=== PATIENT | male | born 1990 | race Caucasian/White ===

== ENCOUNTER 2018-04-20 18:45 | Emergency (ER) | payer MEDICAID ==
[~2018-04-20] VITALS: Ht 170.2 cm; Wt 74.8 kg
[2018-04-20 18:57] VITALS: BP 107/69
--- NOTE | 2018-04-20 19:03 | NUR ---
27 Y/O M PRESENTS TO THE ED W/C/O GEN BODY RASH/ITCHINESS X 3 MONTHS WHILE IN [facility]; WAS JUST RELEASE FROM [facility] YESTERDAY; DENIES SOB. PT DENIES N/V/D; AAOX4, PERRL, WITH EVEN AND STEADY GAIT; LUNGS CLEAR BL, BREATHING UNLABORED; HR EVEN AND REGULAR, BL PERIPHERAL PULSES PRESENT; BS ACTIVE X4, NO TENDERNESS TO PALPATION, NO HEPATOSPLENOMEGALLY PALPATED, RESONANT TO PERCUSSION; PT DENIES ANY FEVER, CP, SOB, OR COUGH AT THIS TIME; PT STATES 0/10 PAIN AT THIS TIME; VSS; PATIENT POSITIONED FOR COMFORT; HOB ELEVATED; BEDRAILS UP X2; BED DOWN. HX; DENIES RX; DENIES
--- NOTE | 2018-04-20 19:44 | NUR ---
Dr. Ruiz evaluating patient at bedside.
[2018-04-20 20:30] VITALS: BP 123/65
--- NOTE | 2018-04-20 20:30 | NUR ---
Patient discharged with v/s stable. Written and verbal after care instructions given and explained. Patient alert, oriented and verbalized understanding of instructions. Ambulatory with steady gait. All questions addressed prior to discharge. ID band removed. Patient advised to follow up with PMD. Rx of PERMETHRIN given. Patient educated on indication of medication including possible reaction and side effects. Opportunity to ask questions provided and answered.
== END 2018-04-20 20:30 | disposition home or self-care (01) ==
LOC: MED 18:45
DX: B86 Scabies (principal)
CPT/HCPCS: 99282

== ENCOUNTER 2018-05-02 13:13 | Emergency (ER) | payer MEDICAID ==
[~2018-05-02] VITALS: Ht 170.2 cm; Wt 77.1 kg
[2018-05-02 13:23] VITALS: BP 124/61
[2018-05-02 14:15] VITALS: BP 124/61
== END 2018-05-02 14:12 | disposition home or self-care (01) ==
LOC: MED 13:13
DX: B86 Scabies (principal)
CPT/HCPCS: 99282

== ENCOUNTER 2018-05-10 01:59 | Emergency (ER) | payer MEDICAID ==
[~2018-05-10] VITALS: Ht 170.2 cm; Wt 65.8 kg
[2018-05-10 02:06] VITALS: BP 109/77
--- NOTE | 2018-05-10 02:09 | NUR ---
PT TAKEN TO BED 4
--- NOTE | 2018-05-10 02:30 | NUR ---
CAME IN WITH C/O DOGBITE ON HIS PENIS, AND RT UPPER POSTERIOR THIGH, NO BLEEDING AT THIS TIME. IT WAS NEIGHBORS DOG. TETANUS VACCINE UTD.
--- NOTE | 2018-05-10 02:36 | NUR ---
Dr. Mcgrath evaluating patient at bedside.
[2018-05-10] MEDS ORDERED: HYDROcodone/APAP 5/325 MG 1 TAB TAB PO ONE (02:45)
[2018-05-10] MEDS ORDERED: BACITRACIN OINT 500 UNITS/GM PKT TP ONE (02:45)
--- NOTE | 2018-05-10 02:56 | NUR ---
PT WOUNDS IRRIGATED WITH NORMAL SALINE
--- NOTE | 2018-05-10 03:05 | NUR ---
PT WOUND ON R UPPER THIGH COVERED WITH BANDAID AFTER BACITRACIN APPLIED. PT WOUND ON PENIS COVERED WITH BACITRACIN.
[2018-05-10 03:20] VITALS: BP 115/80
--- NOTE | 2018-05-10 03:20 | NUR ---
Patient discharged with v/s stable. Written and verbal after care instructions given and explained. Patient alert, oriented and verbalized understanding of instructions. Ambulatory with steady gait. All questions addressed prior to discharge. ID band removed. Patient advised to follow up with PMD. Rx of AUGMENTIN 875 MG, [id number] given. Patient educated on indication of medication including possible reaction and side effects. Opportunity to ask questions provided and answered.
--- NOTE | 2018-05-10 03:20 | NUR ---
ANIMAL [employer] REPORTING FORM WAS FAX TO [facility] FAX#[phone]
== END 2018-05-10 03:20 | disposition home or self-care (01) ==
LOC: MED 01:59
DX: S71.151A Open bite, right thigh, initial encounter (principal); S30.872A Other superficial bite of penis, initial encounter; W54.0XXA Bitten by dog, initial encounter; Y93.89 Activity, other specified; Y92.89 Other specified places as the place of occurrence of the external cause; Y99.8 Other external cause status
CPT/HCPCS: 99283